=== PATIENT | male | born 1965 | race American Indian/Alaskan Native ===

== ENCOUNTER 2017-10-22 06:47 | Day surgery (SDC) | payer OTHER ==
[2017-10-22 07:41] LABS: Hematocrit 43.4 % (35.5-45.6); Hemoglobin 14.2 gm/dl (11.8-15.2); Mean Corpuscular HGB Conc 33 % (32-34); Mean Corpuscular Hemoglobin 28 pg (28-32); Mean Corpuscular Volume 86 fl (84-94); Platelet Count 149 K/mm3 (140-440); Red Blood Count 5.05 M/mm3 (3.65-5.03); Red Cell Distribution Width 13.7 % (13.2-15.2)
[2017-10-22 07:43] LABS: INR 0.84 (0.87-1.13)
[2017-10-22 07:51] LABS: BUN/Creatinine Ratio 13; Blood Urea Nitrogen 10 mg/dL (9-20); Calcium 9.3 mg/dL (8.4-10.2); Hemolysis Index 25
[2017-10-22] MEDS ORDERED: NACL 0.9% 500 ML 500 ML IV SCH (08:00)
[2017-10-22] MEDS ORDERED: HEPARIN/NS 5000 UNIT/500ML(CATH LAB) 1,000 ML IR ONE (08:23)
[2017-10-22] MEDS ORDERED: HEPARIN 10,000 UNITS/10 ML ONE (08:23)
[2017-10-22] MEDS ORDERED: NITROGLYCERIN SYRINGE 3 ML ONE (08:24)
[2017-10-22] MEDS ORDERED: XYLOCAINE 2% INFILTRATI ONE (08:24)
[2017-10-22] MEDS ORDERED: CALAN ONE (08:24)
[2017-10-22] MEDS: SUBLIMAZE ONE ×2 (08:40→08:44)
[2017-10-22] MEDS: VERSED ONE ×2 (08:40→08:44)
--- NOTE | 2017-10-22 09:20 | Discharge Summary ---
Short Stay Discharge Plan Activity: advance as tolerated Weight Bearing Status: Partial Weight Bearing Diet: low fat, low cholesterol, low salt, diabetic Wound: keep clean and dry Special Instructions: smoking cessation, no heavy lifting (3 days), hold Metformin (48hrs only) Follow up with: MICHELLE BLAS MD [Primary Care Provider] - 7 Days MARITZA JACOBS MD [Staff Physician] - 7 Days
[2017-10-22 09:37] LABS: Basophils % (Manual) 0 % (0.0-1.8); Platelet Estimate Consistent w Auto; RBC Morphology Normal; Total Cells Counted 100
--- NOTE | 2017-10-22 09:54 | Cardiac Catherization Report ---
CARDIAC CATHETERIZATION REASON FOR PROCEDURE: Chest pain, unstable angina, and abnormal stress test. PROCEDURE: The patient was prepped and draped in a sterile fashion after informed consent. Right femoral artery was entered using Seldinger technique followed by placement of a 6-[place] sheath. Selective left and right coronary angiography was performed using #4 right and left Mickey catheters. The pigtail catheter was used for left ventricle angiography. The catheters were removed, sheath removed, and hemostasis achieved using an Angio-Seal device. The patient was returned to the post-procedure unit in stable condition. There were no complications. FINDINGS: HEMODYNAMICS: Left ventricular end-diastolic pressure was 25, following coronary angiography. Ascending aortic pressure was 138/87. There was no significant pressure gradient on pullback across the aortic valve. CORONARY ANGIOGRAPHY: The left main coronary artery was free of significant disease. The left anterior descending artery contained mild diffuse irregularities in its proximal and mid segments. The distal segment of the LAD was notable for a 50% stenosis located towards the apex. Otherwise, diffuse mild atherosclerosis was also noted of the small diagonal branches of the LAD. The first obtuse marginal branch of the circumflex was a large vessel that was completely occluded in its proximal segment. This was a long segment of chronic total occlusion of this branch vessel. There was faint collateralization of the distal segments of this branch via left to left collaterals. The circumflex then continued, terminating in a medium-sized bifurcating terminal branch. The superior sub-branch of this terminal branch contained mild diffuse atherosclerosis. The inferior sub-branch was a very small caliber, less than 1.5 mm vessel that contained severe diffuse atherosclerosis. The right coronary artery was dominant. This vessel contained mild luminal irregularities in its mid segment. There was [id number] diffuse atherosclerosis of the distal terminal branches of this vessel. Left ventricular chamber size and systolic function was normal. The left ventricular ejection fraction was greater than 65%. In the KHMER projection, there was a small focal segment of moderate basal inferolateral hypokinesis. As reported, the overall left ventricular systolic ejection fraction was greater than 65%. CONCLUSION: 1. 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 2. Normal overall left ventricular systolic function with ejection fraction greater than 65%. RECOMMENDATION: 1. Aggressive risk factor modification. 2. Medical therapy for small vessel disease of the circumflex system. 3. Serial noninvasive assessment and followup of the obstructive disease of the distal left anterior descending artery. JOB# [id number] RODRIGUE/NTS
[2017-10-22] MEDS ORDERED: NACL 0.9% 1000 ML 1,000 ML IV SCH (10:00)
[2017-10-22] MEDS ORDERED: TYLENOL PO ONE (10:30)
[2017-10-22 13:42] VITALS: BP 123/79
== END 2017-10-22 13:00 | disposition home or self-care (01) ==
LOC: CATHLABREC 06:47
PROVIDERS: ATTEND Internal Medicine Cardiovascular Disease
DX: I25.110 Atherosclerotic heart disease of native coronary artery with unstable angina pectoris (principal); E11.9 Type 2 diabetes mellitus without complications; F17.200 Nicotine dependence, unspecified, uncomplicated; Z79.82 Long term (current) use of aspirin; Z79.84 Long term (current) use of oral hypoglycemic drugs; Z79.899 Other long term (current) drug therapy
CPT/HCPCS: 36415; 80048; 85007; 85025; 85610; 85730; 93005; 93010; 93458; 99156; C1760; C1894; J1644; J2250; J3010; J7040; Q9967